=== PATIENT | female | born 1945 ===

== ENCOUNTER 2019-05-22 07:00 | Day surgery (SDC) | payer OTHER ==
[~2019-05-22 07:00] MED LIST: ADVAIR HFA 230/12 GM IH; DILTIAZEM 24HR180 MG PO; SINGULAIR10 MG PO; SYNTHROID137 MCG PO; ZOCOR40 MG PO
== END 2019-05-22 14:30 | disposition home or self-care (01) ==
LOC: CIR.AMB 07:00 → ADM 07:45 → CIR.AMB 07:45
DX: M47.816 Spondylosis without myelopathy or radiculopathy, lumbar region (principal); M99.43 Connective tissue stenosis of neural canal of lumbar region